=== PATIENT | female | born 1945 | race African-American/Black ===

== ENCOUNTER 2018-05-14 19:02 | Emergency (ER) | payer MEDICARE, OTHER ==
--- NOTE | 2018-05-14 20:31 | ED Physician Documentation ---
PD HPI ALTERED MENTAL STATUS - Stated complaint Stated Complaint: POSS STROKE/DIABETIC - Chief complaint Chief Complaint: Neuro - History obtained from History obtained from: Patient, Caregiver - History of Present Illness Timing - onset: How many days ago (1-2 days of malaise and general weakness, some cough, and has noted increased aphasia over baseline. Difficulty talking worse today. She says she has had less appetite and intake for 1-2 days, some nausea, but no vomiting. Has had some diarrhea. Some cramping abd pains. No dysuria.) Timing - duration: Days (1-2) Timing - details: Gradual onset, Still present Quality / character: Other (trouble speaking/getting words out, similar to prior CVA symptoms.) Associated symptoms: Cough, NVD (nausea and diarrhea, but not vomiting.), General weakness. No: Fever, Headache Contributing factors: Diabetic, Recent illness (cough, malaise, nausea and diarrhea for 1-2 days.). No: Recent med change, Recent injury, Intoxicated Basline status: Cane, Other (prior CVAs, with some baseline stuttering/expr essive aphasia, and some left sided weakness.) Similar symptoms before: Diagnosis (aphasia with prior CVAs.) Recently seen: Not recently seen Review of Systems Constitutional: reports: Myalgias, Fatigue. denies: Fever, Chills Nose: reports: Congestion. denies: Rhinorrhea / runny nose Throat: denies: Sore throat Cardiac: denies: Chest pain / pressure Respiratory: reports: Cough. denies: Dyspnea, Wheezing GI: reports: Abdominal Pain (cramping), Nausea, Diarrhea. denies: Vomiting : denies: Dysuria, Frequency Neurologic: reports: Difficulty speaking. denies: Headache PD PAST MEDICAL HISTORY - Past Medical History Cardiovascular: Hypertension, High cholesterol Endocrine/Autoimmune: Type 2 diabetes, HyPOthyroidism GI: GERD HEENT: Other Musculoskeletal: Osteoarthritis - Past Surgical History Past Surgical History: Yes /[employer]: section, Hysterectomy Cardiovascular: Coronary stent HEENT: Other - Present Medications Home Medications: Ambulatory Orders Medication Instructions Recorded Confirmed Acetaminophen 1,000 mg PO TID 01/31/17 01/31/17 Atenolol/Chlorthalidone 1 tab PO DAILY 01/31/17 01/31/17 [Atenolol-Chlorthalidone 100-25] Atorvastatin [Lipitor] 80 mg PO DAILY 01/31/17 01/31/17 Clopidogrel [Plavix] 75 mg PO DAILY 01/31/17 01/31/17 Cyclobenzaprine [Flexeril] 10 mg PO BID PRN #10 tablet 01/31/17 Empagliflozin [Jardiance] 12.5 mg PO BID 01/31/17 01/31/17 Famotidine [Pepcid] 80 mg PO DAILY 01/31/17 01/31/17 Gabapentin [Neurontin] 100 mg PO DAILY 01/31/17 01/31/17 Glimepiride 2 mg PO QID 01/31/17 01/31/17 Isosorbide Mononitrate [Isosorbide 60 mg PO DAILY 01/31/17 01/31/17 Mononitrate ER] Levothyroxine [Synthroid] 88 mcg PO DAILY 01/31/17 01/31/17 Losartan [Cozaar] 100 mg PO DAILY 01/31/17 01/31/17 Magnesium Oxide [Mag-Oxide] 200 mg PO BID 01/31/17 01/31/17 Multivit with Calcium,Iron,Min 1 tab PO DAILY 01/31/17 01/31/17 [Multiple Vitamins For Women] amLODIPine [Norvasc] 5 mg PO DAILY 01/31/17 01/31/17 metFORMIN [Glucophage] 500 mg PO BID 01/31/17 01/31/17 oxyCODONE [Roxicodone] 5 mg PO Q6H PRN 01/31/17 01/31/17 - Allergies Allergies/Adverse Reactions: Allergies Allergy/AdvReac Type Severity Reaction Status Date / Time morphine Allergy Unknown Verified 01/31/17 17:43 Penicillins Allergy Unknown Verified 01/31/17 17:43 - Social History Does the pt smoke?: No Smoking Status: Never smoker Does the pt drink ETOH?: No - Immunizations Immunizations are current?: Yes - POLST Patient has POLST: No PD ED PE NORMAL - Vitals Vital signs reviewed: Yes - General General: Well developed/nourished, Other (expressive aphasia, with normal content.) - HEENT HEENT: Ears normal, Pharynx benign. No: Moist mucous membranes - Neck Neck: Supple, no meningeal sign, No adenopathy - Cardiac Cardiac: RRR, No murmur - Respiratory Respiratory: Clear bilaterally - Abdomen Abdomen: Normal bowel sounds, Soft, Non distended, No organomegaly, Other (mild upper abd/epigastric tender without guarding. Mid abdomen also with some tenderness. No percussion tenderness. ) - Female Female : Deferred - Rectal Rectal: Deferred - Back Back: No CVA TTP - Derm Derm: Normal color, Warm and dry - Extremities Extremities: No tenderness to palpate, Normal ROM s pain, No edema - Neuro Neuro: Alert and oriented X 3. No: Normal speech (stuttering type pattern and needs repetition to get a thought across. No facial weakness noted. Symmetric motor on arms and legs, with good tenoner operator. Facial and ext sensation normal. ) Results - Vitals Vitals: Vital Signs - 24 hr 05/14/18 05/14/18 05/14/18 19:14 19:23 21:21 Temperature 35.8 C L Heart Rate 78 78 Respiratory 16 16 Rate Blood Pressure 153/109 H 171/87 H O2 Saturation 92 94 05/14/18 05/15/18 23:00 00:28 Temperature Heart Rate 70 70 Respiratory 14 16 Rate Blood Pressure 159/88 H 159/90 H O2 Saturation 92 96 Oxygen O2 Source Room air - Labs Labs: Laboratory Tests 05/14/18 05/14/18 05/14/18 19:32 20:36 20:36 WBC 4.3 L RBC 3.92 L Hgb 10.4 L Hct 33.0 L MCV 84.2 MCH 26.6 L MCHC 31.6 L RDW 15.0 Plt Count 161 MPV 9.5 Neut # (Auto) 2.0 Lymph # (Auto) 1.7 [place] # (Auto) 0.4 Eos # (Auto) 0.2 Baso # (Auto) 0.0 Absolute Nucleated RBC 0.00 Nucleated RBC % 0.0 Sodium 141 Potassium 3.8 Chloride 103 Carbon Dioxide 27 Anion Gap 11.0 BUN 36 H Creatinine 0.9 Estimated GFR (MDRD) 74 L Glucose 229 H POC Whole Bld Glucose 160 H Lactic Acid Calcium 9.4 Magnesium 1.8 Total Bilirubin 0.6 AST 24 ALT 22 Alkaline Phosphatase 74 Total Protein 7.6 Albumin 3.9 Globulin 3.7 Albumin/Globulin Ratio 1.1 Lipase 67 H Urine Color Urine Clarity Urine pH Ur Specific [place] Urine Protein Urine Glucose (UA) Urine Ketones Urine Occult Blood Urine Nitrite Urine Bilirubin Urine Urobilinogen Ur Leukocyte Esterase Ur Microscopic Review Urine Culture Comments Influenza A (Rapid) Influenza B (Rapid) 05/14/18 05/14/18 05/14/18 21:04 21:26 23:46 WBC RBC Hgb Hct MCV MCH MCHC RDW Plt Count MPV Neut # (Auto) Lymph # (Auto) [place] # (Auto) Eos # (Auto) Baso # (Auto) Absolute Nucleated RBC Nucleated RBC % Sodium Potassium Chloride Carbon Dioxide Anion Gap BUN Creatinine Estimated GFR (MDRD) Glucose POC Whole Bld Glucose Lactic Acid 1.1 Calcium Magnesium Total Bilirubin AST ALT Alkaline Phosphatase Total Protein Albumin Globulin Albumin/Globulin Ratio Lipase Urine Color YELLOW Urine Clarity CLEAR Urine pH 5.0 Ur Specific [place] 1.020 Urine Protein TRACE Urine Glucose (UA) 100 H Urine Ketones NEGATIVE Urine Occult Blood TRACE-INTA Urine Nitrite NEGATIVE Urine Bilirubin NEGATIVE Urine Urobilinogen 0.2 (NORMAL) Ur Leukocyte Esterase NEGATIVE Ur Microscopic Review NOT INDICATED Urine Culture Comments NOT INDICATED Influenza A (Rapid) Negative Influenza B (Rapid) Negative - Rads (name of study) head CT Radiology: Prelim report reviewed (no acute process), See rad report chest xray Radiology: Prelim report reviewed (no infiltrates. ), See rad report PD MEDICAL DECISION MAKING - ED course Complexity details: considered differential, d/w patient, d/w family Departure - Departure Disposition: 01 Home, Self Care Clinical Impression: Dehydration, Aphasia Upper respiratory infection Qualifiers: URI type: unspecified URI Qualified Code(s): J06.9 - Acute upper respiratory infection, unspecified Condition: Stable Record reviewed to determine appropriate education?: Yes Comments: I think you are having a viral type illness with the decreased intake and cough. I think that is exacerbating your prior stroke symptoms and therefore the more trouble breathing talking. At this point your blood tests and such did not suggest a more serious infection. Your chest x-ray is clear without any signs of pneumonia. Your head scan does not show any signs of bleeding or swelling or obvious new stroke. Home and drink lots of fluids and see how you feel over the next day or 2. Discharge Date/Time: 05/15/18 00:37
[2018-05-14] MEDS ORDERED: SODIUM CHLORIDE 0.9% 1,000 ML IV ONE (20:55)
[2018-05-14 21:05] LABS: BASOPHILS % (AUTO) 0.8 %; EOSINOPHILS # (AUTO) 0.2 10^3/uL (0.0-0.7); EOSINOPHILS % (AUTO) 5.7 %; HGB - HEMOGLOBIN 10.4 g/dL (12.0-16.0); LYMPHOCYTES # (AUTO) 1.7 10^3/uL (1.5-3.5); LYMPHOCYTES % (AUTO) 39.3 %; MEAN CORPUSCULAR HEMOGLOBIN 26.6 pg (27.0-31.0); MEAN CORPUSCULAR HGB CONC 31.6 g/dL (32.0-36.0); MEAN CORPUSCULAR VOLUME 84.2 fL (81.0-99.0); MEAN PLATELET VOLUME 9.5 fL (7.9-10.8); MONOCYTES # (AUTO) 0.4 10^3/uL (0.0-1.0); MONOCYTES % (AUTO) 8.1 %; NEUTROPHILS % (AUTO) 46.1 %; PLT - PLATELET COUNT 161 10^3/uL (130-450); RED BLOOD COUNT 3.92 10^6/uL (4.20-5.40); WHITE BLOOD COUNT 4.3 x10^3/uL (4.8-10.8)
[2018-05-14 21:16] LABS: ALBUMIN 3.9 g/dL (3.2-5.5); ALBUMIN/GLOBULIN RATIO 1.1 (1.0-2.2); BILIRUBIN,TOTAL 0.6 mg/dL (0.2-1.0); CALCIUM 9.4 mg/dL (8.5-10.3); CREATININE 0.9 mg/dL (0.4-1.0); MAGNESIUM 1.8 mg/dL (1.7-2.8); TOTAL PROTEIN 7.6 g/dL (6.7-8.2)
--- NOTE | 2018-05-14 21:38 | XRAY Report ---
Reason: cough and weakness Procedure Date: 05/14/2018 Accession Number: [id number] / [id number] Procedure: XR - Chest 1 View X-Ray CPT Code: 91394 FULL RESULT: EXAM: CHEST RADIOGRAPHY EXAM DATE: 05/14/2018 09:13 PM. CLINICAL HISTORY: Cough and weakness. COMPARISON: None. TECHNIQUE: 1 view. FINDINGS: Lungs/Pleura: Low lung volumes. Mediastinum: Heart and mediastinal contours are unremarkable. Other: High riding right humeral head likely reflects rotator cuff pathology. IMPRESSION: No acute radiographic pulmonary abnormalities. RADIA
--- NOTE | 2018-05-14 22:07 | CT Report ---
Reason: expressive aphasia; prior CVAs Procedure Date: 05/14/2018 Accession Number: [id number] / [id number] Procedure: CT - Head W/O CPT Code: FULL RESULT: EXAM: CT HEAD EXAM DATE: 05/14/2018 09:43 PM. CLINICAL HISTORY: Expressive aphasia; prior CVAs. COMPARISON: None. TECHNIQUE: Multiaxial CT images were obtained from the foramen magnum to the vertex. Reformats: Sagittal and coronal. IV contrast: None. In accordance with CT protocol optimization, one or more of the following dose reduction techniques were utilized for this exam: automated exposure control, adjustment of mA and/or KV based on patient size, or use of iterative reconstructive technique. FINDINGS: Parenchyma: No intraparenchymal hemorrhage. No evidence of mass, midline shift or CT findings of acute territorial infarction. Gardiner-white differentiation is distinct. Mild global volume loss. Deep white matter low attenuation likely reflects chronic micro-angiopathic ischemic change. Extraaxial Spaces: No subdural or epidural collections identified. Ventricles: No hydrocephalus Sinuses: Imaged paranasal sinuses, orbits, and mastoids show no significant abnormality. Bones: No evidence of acute fracture or calvarial defect. 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 Other: None. IMPRESSION: No acute intracranial abnormalities. RADIA
[2018-05-14] MEDS ORDERED: ONDANSETRON ODT 4 MG Prepack 2 TL PRN (23:53)
[2018-05-14 23:54] LABS: BILIRUBIN,URINE NEGATIVE (NEGATIVE); GLUCOSE, URINE (UA) 100 mg/dL (NEGATIVE); KETONES,URINE (UA) NEGATIVE (NEGATIVE); LEUKOCYTE ESTERASE, URINE NEGATIVE (NEGATIVE); NITRITE,URINE NEGATIVE (NEGATIVE); OCCULT BLOOD,URINE TRACE-INTA (NEGATIVE); PROTEIN,URINE TRACE mg/dL (NEGATIVE); UROBILINOGEN,URINE 0.2 (NORMAL) E.U./dL (NORMAL)
[2018-05-14 23:56] LABS: CLARITY,URINE CLEAR (CLEAR)
[2018-05-15 00:29] VITALS: BP 159/90
== END 2018-05-15 00:37 | disposition home or self-care (01) ==
LOC: ED 19:02
DX: E86.0 Dehydration (principal); J06.9 Acute upper respiratory infection, unspecified; I69.320 Aphasia following cerebral infarction; I69.354 Hemiplegia and hemiparesis following cerebral infarction affecting left non-dominant side; I10 Essential (primary) hypertension; E11.9 Type 2 diabetes mellitus without complications; Z79.84 Long term (current) use of oral hypoglycemic drugs; Z79.02 Long term (current) use of antithrombotics/antiplatelets
CPT/HCPCS: 36415; 70450; 71045; 80053; 81001; 81003; 83605; 83690; 83735; 85025; 87086; 87275; 87276; 93005; 96360; 96361; 99283; 99284

== ENCOUNTER 2020-03-04 17:03 | Outpatient (CLI) | payer MEDICARE | END 2020-03-04 17:04 | disposition EMS.NT | LOC: EMS 17:03 | PROVIDERS: ATTEND Surgery | DX: R07.9 Chest pain, unspecified (principal); M25.512 Pain in left shoulder ==

== ENCOUNTER 2021-02-01 13:21 | Outpatient (CLI) | payer MEDICARE | END 2021-02-01 13:22 | disposition EMS.NT | LOC: EMS 13:21 | DX: R55 Syncope and collapse (principal) ==

== ENCOUNTER 2021-05-07 08:59 | Outpatient (CLI) | payer MEDICARE | END 2021-05-07 09:00 | disposition short-term general hospital (02) | LOC: EMS 08:59 | DX: R41.82 Altered mental status, unspecified (principal) | CPT/HCPCS: A0425; A0429 ==

== ENCOUNTER 2022-02-13 16:26 | Outpatient (CLI) | payer MEDICARE | END 2022-02-13 16:27 | disposition EMS.NT | LOC: EMS 16:26 | DX: R41.0 Disorientation, unspecified (principal); E11.65 Type 2 diabetes mellitus with hyperglycemia ==

== ENCOUNTER 2022-03-27 20:29 | Outpatient (CLI) | payer MEDICARE | END 2022-03-27 20:30 | disposition EMS.NT | LOC: EMS 20:29 | DX: Z04.1 Encounter for examination and observation following transport accident (principal) ==

== ENCOUNTER 2022-04-01 14:48 | Outpatient (CLI) | payer MEDICARE | END 2022-04-01 14:49 | disposition EMS.NT | LOC: EMS 14:48 | DX: R53.83 Other fatigue (principal) ==

== ENCOUNTER 2022-04-01 16:56 | Emergency (ER) | payer MEDICARE ==
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
[2022-04-01] MEDS ORDERED: OLANZapine ODT 5 MG TABLET TL ONE (17:44)
[2022-04-01] MEDS ORDERED: LORazepam 0.5 MG TABLET PO STA (17:44)
== END 2022-04-01 18:39 | disposition home or self-care (01) ==
LOC: ED 16:56
DX: R41.82 Altered mental status, unspecified (principal); E11.9 Type 2 diabetes mellitus without complications; Z79.4 Long term (current) use of insulin; I10 Essential (primary) hypertension
CPT/HCPCS: 99282; 99283; A9270; 80053; 83605; 83690; 85025

== ENCOUNTER 2022-06-27 06:50 | Outpatient (CLI) | payer MEDICARE | END 2022-06-27 06:51 | disposition EMS.NT | LOC: EMS 06:50 | DX: Z03.89 Encounter for observation for other suspected diseases and conditions ruled out (principal) ==

== ENCOUNTER 2022-11-05 10:09 | Emergency (ER) | payer MEDICARE ==
[2022-11-05 11:33] LABS: BASOPHILS % (AUTO) 0.5 %; EOSINOPHILS # (AUTO) 0.3 10^3/uL (0.0-0.7); EOSINOPHILS % (AUTO) 3.4 %; HCT - HEMATOCRIT 27.5 % (37.0-47.0); HGB - HEMOGLOBIN 8.5 g/dL (12.0-16.0); LYMPHOCYTES # (AUTO) 1.7 10^3/uL (1.5-3.5); LYMPHOCYTES % (AUTO) 21.8 %; MEAN CORPUSCULAR HEMOGLOBIN 26.6 pg (27.0-31.0); MEAN CORPUSCULAR HGB CONC 30.9 g/dL (32.0-36.0); MEAN CORPUSCULAR VOLUME 86.2 fL (81.0-99.0); MEAN PLATELET VOLUME 10.7 fL (7.9-10.8); MONOCYTES # (AUTO) 0.6 10^3/uL (0.0-1.0); MONOCYTES % (AUTO) 7.1 %; NEUTROPHILS # (AUTO) 5.2 10^3/uL (1.5-6.6); NEUTROPHILS % (AUTO) 66.9 %; PLT - PLATELET COUNT 185 10^3/uL (130-450); RED BLOOD COUNT 3.19 10^6/uL (4.20-5.40); WHITE BLOOD COUNT 7.7 x10^3/uL (4.8-10.8)
[2022-11-05 11:55] LABS: ALBUMIN 3.6 g/dL (3.2-5.5); BILIRUBIN,TOTAL 0.4 mg/dL (0.2-1.0); CALCIUM 9.6 mg/dL (8.5-10.3); CREATININE 1.4 mg/dL (0.6-1.3); POTASSIUM 3.7 mmol/L (3.5-4.5); TOTAL PROTEIN 7.3 g/dL (6.4-8.9)
--- NOTE | 2022-11-05 13:54 | ED Physician Documentation ---
History of Present Illness - Stated complaint Stated Complaint: FEMALE - Chief complaint Chief Complaint: Abd Pain - Additonal information Additional information: 77-year-old female who has past medical history most significant for hyperte nsion, diabetes and previous strokes presents the emergency department for evaluation of 2 days bright red blood per rectum. History is somewhat limited due to patient's cognition and status. Is partly provided by her full-time caregiver. He reports that she had reported she had some blood in the toilet several days ago but he did not think much of it. The patient had begun to complain of increased rectal pain and lower abdominal pain over the last few days. This morning she had a diaper full of bright red blood. She does not appear to be anticoagulated. 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 Cardiovascular: Coronary stent HEENT: Other - Present Medications Home Medications: Ambulatory Orders Medication Instructions Recorded Confirmed Acetaminophen 1,000 mg PO TID 01/31/17 01/31/17 Atenolol/Chlorthalidone 1 tab PO DAILY 01/31/17 01/31/17 [Atenolol-Chlorthalidone 100-25] Atorvastatin [Lipitor] 80 mg PO DAILY 01/31/17 01/31/17 Clopidogrel [Plavix] 75 mg PO DAILY 01/31/17 01/31/17 Cyclobenzaprine [Flexeril] 10 mg PO BID PRN #10 tablet 01/31/17 Empagliflozin [Jardiance] 12.5 mg PO BID 01/31/17 01/31/17 Famotidine [Pepcid] 80 mg PO DAILY 01/31/17 01/31/17 Gabapentin [Neurontin] 100 mg PO DAILY 01/31/17 01/31/17 Glimepiride 2 mg PO QID 01/31/17 01/31/17 Isosorbide Mononitrate [Isosorbide 60 mg PO DAILY 01/31/17 01/31/17 Mononitrate ER] Levothyroxine [Synthroid] 88 mcg PO DAILY 01/31/17 01/31/17 Losartan [Cozaar] 100 mg PO DAILY 01/31/17 01/31/17 Magnesium Oxide [Mag-Oxide] 200 mg PO BID 01/31/17 01/31/17 Multivit with Calcium,Iron,Min 1 tab PO DAILY 01/31/17 01/31/17 [Multiple Vitamins For Women] amLODIPine [Norvasc] 5 mg PO DAILY 01/31/17 01/31/17 metFORMIN [Glucophage] 500 mg PO BID 01/31/17 01/31/17 oxyCODONE [Roxicodone] 5 mg PO Q6H PRN 01/31/17 01/31/17 traZODone [Desyrel] 25 mg PO HS 30 Days #15 tablet 04/01/22 - Allergies Allergies/Adverse Reactions: Allergies Allergy/AdvReac Type Severity Reaction Status Date / Time morphine Allergy Unknown Verified 04/01/22 17:49 Penicillins Allergy Unknown Verified 04/01/22 17:49 - Social History Does the pt smoke?: No Smoking Status: Never smoker Does the pt drink ETOH?: No - Immunizations Immunizations are current?: Yes - POLST Patient has POLST: No PD ED PE NORMAL - General General: Alert and oriented X 3. No: No acute distress (Crying tearful), Well developed/nourished (Appears much older than stated age) - HEENT HEENT: Atraumatic, Moist mucous membranes - Neck Neck: Supple, no meningeal sign - Cardiac Cardiac: RRR, No murmur - Respiratory Respiratory: No respiratory distress - Abdomen Abdomen: Normal bowel sounds, Soft, Non tender - Rectal Rectal: Other (On chaperoned perirectal exam no obvious bleeding. Gloved finger revealed no obvious stool melena or hematochezia in the vault. Patient complained of rectal pain) - Back Back: No CVA TTP - Derm Derm: Normal color, Warm and dry - Extremities Extremities: No deformity - Neuro Eye Opening: Spontaneous Motor: Obeys Commands Verbal: Confused GCS Score: 14 Results - Vitals Vitals: Vital Signs - 24 hr 11/05/22 11/05/22 10:40 15:50 Temperature 37.3 C Heart Rate 72 58 L Respiratory 16 28 H Rate Blood Pressure 170/87 H 177/142 H O2 Saturation 98 98 Oxygen O2 Source Room air - EKG (time done) 1052 EKG releavant findings:: EKG personally interpreted by author of this note. Relevant findings are: Rate: Rate (enter#) (59) Rhythm: NSR [place]: Normal Intervals: Normal OK. No: Prolonged QT QRS: LVH Ischemia: Q waves (anterior) Compare to prior EKG: Old EKG unavailable Computer interpretation: Agree with computer - Labs Labs: Laboratory Tests 11/05/22 11/05/22 11/05/22 11:27 11:27 15:00 WBC 7.7 RBC 3.19 L Hgb 8.5 L Hct 27.5 L MCV 86.2 MCH 26.6 L MCHC 30.9 L RDW 14.0 Plt Count 185 MPV 10.7 Neut # (Auto) 5.2 Lymph # (Auto) 1.7 Braxton # (Auto) 0.6 Eos # (Auto) 0.3 Baso # (Auto) 0.0 Absolute Nucleated RBC 0.00 Nucleated RBC % 0.0 Sodium 141 Potassium 3.7 Chloride 108 Carbon Dioxide 27 Anion Gap 6.0 BUN 30 H Creatinine 1.4 H Estimated GFR (MDRD) 44 L Glucose 240 H Calcium 9.6 Total Bilirubin 0.4 AST 16 ALT 14 Alkaline Phosphatase 78 Total Protein 7.3 Albumin 3.6 Globulin 3.7 Albumin/Globulin Ratio 1.0 Lipase 10 L Urine Color YELLOW Urine Clarity CLEAR Urine pH 6.0 Ur Specific [place] 1.020 Urine Protein >=300 H Urine Glucose (UA) 100 H Urine Ketones NEGATIVE Urine Occult Blood MODERATE H Urine Nitrite NEGATIVE Urine Bilirubin NEGATIVE Urine Urobilinogen 0.2 (NORMAL) Ur Leukocyte Esterase NEGATIVE Urine RBC 0-5 Urine WBC 4-5 Ur Squamous Epith Cells FEW Squamous Urine Bacteria Rare Ur Microscopic Review INDICATED Urine Culture Comments NOT INDICATED 11/05/22 18:47 WBC 7.1 RBC 3.16 L Hgb 8.4 L Hct 26.8 L MCV 84.8 MCH 26.6 L MCHC 31.3 L RDW 14.2 Plt Count 192 MPV 10.6 Neut # (Auto) Lymph # (Auto) Braxton # (Auto) Eos # (Auto) Baso # (Auto) Absolute Nucleated RBC Nucleated RBC % Sodium Potassium Chloride Carbon Dioxide Anion Gap BUN Creatinine Estimated GFR (MDRD) Glucose Calcium Total Bilirubin AST ALT Alkaline Phosphatase Total Protein Albumin Globulin Albumin/Globulin Ratio Lipase Urine Color Urine Clarity Urine pH Ur Specific [place] Urine Protein Urine Glucose (UA) Urine Ketones Urine Occult Blood Urine Nitrite Urine Bilirubin Urine Urobilinogen Ur Leukocyte Esterase Urine RBC Urine WBC Ur Squamous Epith Cells Urine Bacteria Ur Microscopic Review Urine Culture Comments - Rads (name of study) CT abd Relevant Findings:: Final report received (No colonic masses are identified. Diverticulosis without evidence of acute diverticulitis. Moderate hiatal hernia.) PD Medical Decision Making - ED course Complexity details: reviewed results, re-evaluated patient, d/w patient, d/w family, d/w franchise business consultant (Cole) ED course: 7-year-old female who has a history of hypertension atrial fibrillation not anticoagulated presents to the emergency department for evaluation of bright red blood per rectum. Patient does have a history of previous CVAs and is a poor historian her caregiver reports that he changed diaper that had a large amount of bright red blood and I was able to view this in the emergency department. On exam she appears much older than stated age with obvious CVA deficits. Abdominal exam was benign. A chaperoned rectal exam did not reveal any obvious blood in the vault. Obtain CBC and electrolytes. Her initial hemoglobin she was 8.5. There was some mild prerenal azotemia with an elevated BUN and creatinine. She was given a liter of IV fluids here in the emergency department. Subsequently a CT of the abdomen was completed which did not show any obvious source for the bleeding. Diverticulosis was noted without diverticulitis. Patient did have a prolonged length of stay here in the emergency department her repeat hemoglobin was completed at about 8 hours and showed no change. Subsequently I spoke on the phone with Dr. Galvan general surgeon on-call. Given that her hemoglobin is stable and she is without hypotension or tachycardia he feels that an colonoscopy could be deferred to the outpatient setting. He would recommend holding her daily 81 mg aspirin until the colonoscopy is completed. I discussed the plan and findings with the patient and her caregiver at the bedside and they were comfortable with discharge home. The usual emergent return precautions worsening symptoms such as return of bright red blood per rectum, any fainting episodes, suddenly severe abdominal pain or vomiting were discussed. Departure - Departure Disposition: 01 Home, Self Care Clinical Impression: Rectal bleed Anemia Qualifiers: Anemia type: unspecified type Qualified Code(s): D64.9 - Anemia, unspecified Condition: Stable Comments: Damaris was seen in the ER because she had some rectal bleeding. As discussed at the bedside she does have an anemia. Her hemoglobin was 8.5. When we rechecked it several hours later it was essentially the same. The rest of her labs did not show any worrisome findings. A CT of the abdomen was completed that showed diverticulosis but no obvious source or cause for the bleeding. It is important that her primary care doctor make an emergent referral for her for colonoscopy. In the meantime she should stop taking her daily aspirin. If the rectal bleeding returns, she develops fevers, has uncontrolled vomiting she should return immediately to the ER for repeat evaluation. Forms: PCP List
[2022-11-05] MEDS ORDERED: SODIUM CHLORIDE 0.9% 1,000 ML IV STA (13:55)
[2022-11-05 15:08] LABS: BILIRUBIN,URINE NEGATIVE (NEGATIVE); GLUCOSE, URINE (UA) 100 mg/dL (NEGATIVE); KETONES,URINE (UA) NEGATIVE (NEGATIVE); LEUKOCYTE ESTERASE, URINE NEGATIVE (NEGATIVE); NITRITE,URINE NEGATIVE (NEGATIVE); OCCULT BLOOD,URINE MODERATE (NEGATIVE); PROTEIN,URINE >=300 mg/dL (NEGATIVE); UROBILINOGEN,URINE 0.2 (NORMAL) E.U./dL (NORMAL)
[2022-11-05 15:14] LABS: CLARITY,URINE CLEAR (CLEAR)
[2022-11-05 15:32] LABS: BACTERIA,URINE Rare /HPF (None Seen); RBC,URINE 0-5 /HPF (0-5); SQUAMOUS EPITHELIAL CELL,UR FEW Squamous (<= Few)
[2022-11-05 15:53] VITALS: BP 177/142
--- NOTE | 2022-11-05 17:58 | CT Report ---
PROCEDURE: ABDOMEN/PELVIS W INDICATIONS: rectal bleeding CONTRAST: 100mL Omni 300 TECHNIQUE: After the administration of intravenous contrast, 5 mm thick sections acquired from the diaphragms to the symphysis. 5 mm thick coronal and sagittal reformats were acquired. For radiation dose reducti on, the following was used: automated exposure control, adjustment of mA and/or kV according to gerard ent size. COMPARISON: None FINDINGS: Image quality: Excellent. Lung bases and heart: Bibasilar subsegmental atelectasis. Elevation of the right hemidiaphragm. Coron cobly calcifications. Liver: Hepatic steatosis. No hepatic masses Gallbladder and biliary tree: Surgically absent. No biliary dilation, accounting for post-cholecystec thaddeus state. Spleen: No splenomegaly. Pancreas: No pancreatic ductal dilation. Adrenals: No adrenal nodule. Kidneys and ureters: No hydronephrosis. Bilateral renal cysts. No renal cystic lesion which requires follow up. No solid mass. Bowel and peritoneum: Moderate hiatal hernia. No bowel distension. No pathologic free fluid. Divertic ulosis without evidence of diverticulitis. Lymph nodes: No central or retroperitoneal adenopathy. Vessels: No infrarenal aortic aneurysm. Atherosclerotic vascular calcifications. PELVIS Reproductive organs: Unremarkable. Bladder: No abnormal wall thickening, accounting for underdistension. Pelvic lymph nodes: No pelvic adenopathy by size criteria. Bones: No aggressive osseous abnormality. Diffusely decreased osseous mineralization. Multilevel dege nerative changes of the spine. Grade 1 anterolisthesis of L4 on L5. Other: No significant ventral or inguinal hernia. IMPRESSION: 1.No colonic masses are identified. Recommend correlation with colonoscopy for further evaluation. 2.Diverticulosis without evidence of acute diverticulitis. 3.Moderate hiatal hernia. Reviewed by: Aaron Eldridge MD on 11/05/2022 5:56 PM PDT Approved by: Aaron Eldridge MD on 11/05/2022 5:56 PM PDT Station ID: [id number]
[2022-11-05 18:58] LABS: HCT - HEMATOCRIT 26.8 % (37.0-47.0); HGB - HEMOGLOBIN 8.4 g/dL (12.0-16.0); MEAN CORPUSCULAR HEMOGLOBIN 26.6 pg (27.0-31.0); MEAN CORPUSCULAR HGB CONC 31.3 g/dL (32.0-36.0); MEAN CORPUSCULAR VOLUME 84.8 fL (81.0-99.0); MEAN PLATELET VOLUME 10.6 fL (7.9-10.8); RED BLOOD COUNT 3.16 10^6/uL (4.20-5.40); RED CELL DISTRIBUTION WIDTH 14.2 % (12.0-15.0); WHITE BLOOD COUNT 7.1 x10^3/uL (4.8-10.8)
[2022-11-05] MEDS ORDERED: iohexoL-300 100 ML VIAL IVP ONE (19:24)
== END 2022-11-05 20:05 | disposition home or self-care (01) ==
LOC: ED 10:09
DX: K62.5 Hemorrhage of anus and rectum (principal); D64.9 Anemia, unspecified
CPT/HCPCS: 36415; 74177; 80053; 81001; 83690; 85025; 85027; 93005; 96360; 96361; 99284; Q9967; 81003; 87086

== ENCOUNTER 2023-01-12 20:32 | Outpatient (CLI) | payer MEDICARE | END 2023-01-12 23:59 | disposition EMS.NT | LOC: EMS 20:32 | DX: Z03.89 Encounter for observation for other suspected diseases and conditions ruled out (principal) ==

== ENCOUNTER 2023-01-28 18:23 | Outpatient (CLI) | payer MEDICARE | END 2023-01-28 23:59 | disposition short-term general hospital (02) | LOC: EMS 18:23 | DX: K62.5 Hemorrhage of anus and rectum (principal); R10.31 Right lower quadrant pain; R10.32 Left lower quadrant pain | CPT/HCPCS: A0425; A0429 ==

== ENCOUNTER 2023-04-02 23:50 | Outpatient (CLI) | payer MEDICARE | END 2023-04-02 23:59 | disposition EMS.NT | LOC: EMS 23:50 | DX: S80.212A Abrasion, left knee, initial encounter (principal); W01.0XXA Fall on same level from slipping, tripping and stumbling without subsequent striking against object, initial encounter; Y92.000 Kitchen of unspecified non-institutional (private) residence as the place of occurrence of the external cause ==